=== PATIENT | male | born 1985 | race Caucasian/White ===

== ENCOUNTER 2023-03-26 09:33 | Emergency (ER) | payer OTHER, SELFPAY ==
[2023-03-26 09:37] VITALS: BP 148/97; PULSE 84; RESP 18; TEMP 37.2; O2SAT 99; BMI 25.8
--- NOTE | 2023-03-26 10:13 | CRLHL7_ITS ---
For Patients: As a result of the Century Cures Act, medical imaging exams and procedure reports are released immediately into your electronic medical record. You may view this report before your referring provider. If you have questions, please contact your health care provider. INDICATION: Fall TECHNIQUE: Noncontrast axial CT of the head. Coronal and sagittal reformats. Bone and soft tissue algorithms. COMPARISON: CT head report 06/14/2022, CT head 03/09/2017 FINDINGS: The ventricles and cortical sulci appear age-appropriate. No midline shift or mass effect. No acute intracranial hemorrhage or extra-axial fluid collection. Ribeiro-white matter differentiation is grossly maintained. White matter attenuation is within normal limits. Intracranial vessels are unremarkable for technique. Midline structures are unremarkable. Bony calvarium appears grossly intact. Marked circumferential mucosal thickening in the opacifying the right maxillary sinus. Minor scattered mucosal thickening elsewhere throughout the right paranasal sinuses. No air-fluid level or mastoid effusion. Unremarkable orbits. IMPRESSION: 1. No skull fracture or acute intracranial hemorrhage. 2. Marked right maxillary sinus mucosal thickening. Please note that all CT scans at this facility use dose modulation, iterative reconstruction, and/or weight-based dosing when appropriate to reduce radiation dose to as low as reasonably achievable. Dictated by Randa Marcelino MD @ 03/26/2023 10:30:31 AM (Electronically Signed)
--- NOTE | 2023-03-26 10:15 | ED_ITS ---
HPI - General Adult General Chief complaint: Dizziness/Vertigo Stated complaint: dizzy, numbness in hands Time Seen by Provider: 03/26/23 09:44 Source: patient and family Mode of arrival: ambulatory Limitations: no limitations History of Present Illness HPI narrative: Patient is a 37-year-old male presenting today with several concerns. He states that he has not felt well for the last 3 months. He states that on a daily basis he becomes acutely dizzy. The episode can last a few seconds to a couple of minutes. He states that all of a sudden the room were start to spin and he has to sit down and wait for to pass, or he just has to hold onto something so he does not fall over before passes. He does not become nauseated sweaty or confused when this occurs. He is also complaining of neck pain. States that his neck feels sore and tired all the time. Discomfort is bilaterally. He states that he also has tingling down both arms all the way to the fingertips bilaterally. No numbness. He states that after he gets his dizzy episodes he feels a little clumsy. He has not fallen or hit his head. He denies any unintentional weight changes, he exercises 4 times per week, he drinks 2 times per week. Denies tobacco use. 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 Feels like his anxieties generally well controlled. However, these episodes have gotten his anxiety up. No skin or hair changes. No pain in his back. No abdominal or chest pain. He is not short of breath. He denies a headache. He is also concerned because his eyes water when he eats. Related Data Home Medications Medication Instructions Recorded Confirmed escitalopram oxalate 20 mg tablet 20 mg PO DAILY 03/26/23 03/26/23 (Lexapro) Previous Rx's Medication Instructions Recorded alprazolam 0.5 mg tablet 0.5 mg PO BID PRN anxiety #10 tabs 01/14/22 cephalexin 250 mg capsule 250 mg PO TID #21 caps 03/12/22 escitalopram oxalate 20 mg tablet 20 mg PO QDAY #30 tabs 05/22/22 Allergies Allergy/AdvReac Type Severity Reaction Status Date / Time No Known Drug Allergies Allergy Verified 03/26/23 09:44 Review of Systems Status of ROS: Reports: 10 or more systems reviewed and unremarkable except as noted in History and below PFSH PFSH Social History Smoking Status: Never smoker Do you use any of these nicotine containing products: None How often do you have a drink containing alcohol: 2-3 times a week How often do you have six or more drinks on one occasion: Never AUDIT-C Alcohol total score: 3 Non-prescribed substance use: denies use Exam Narrative: Exam Narrative: Well-nourished well-developed patient in no acute distress. Alert and oriented. Answers questions appropriately. Mood and affect are appropriate. Thoughts are goal oriented and rational. No tangential or magical thinking noted. Patient speaks in full sentences without needing to catch his breath. HEENT: Normocephalic atraumatic. Pupils are equally round reactive to light. Extraocular muscles are intact. Conjunctivae are moist without any icterus noted. Moist mucous membranes. Posterior pharynx is normal. Neck is soft without any lymphadenopathy or thyromegaly. No masses are appreciated. Cardiovascular: Heart is regular rate and rhythm S1 and S2 are present without any murmurs. Lungs: Clear to auscultation bilaterally no wheezes rhonchi or rales are appreciated. Patient takes deep breaths without any discomfort. Abdomen: Soft and nontender nondistended with normal bowel sounds. No guarding or rebound. No masses or organomegaly appreciated. Extremities: Bilateral lower extremities are without edema. Normal DP and PT pulses. Skin: Well perfused without any obvious rashes. Strength is 5/5 of the upper and lower extremities. Reflexes are 2+ and symmetric at the knees. Romberg sign is negative. Cranial nerves 3-12 are normal. [id number]-fw-selu is normal. There is no nystagmus either horizontally or vertically. Gait is normal. Speech is not slurred or pressured. Const: Vital Signs, click to edit/add: Vital Signs - 24 hr 03/26/23 09:37 Temperature 99 F Pulse Rate [Right Pulse Oximeter] 84 Respiratory Rate 18 Blood Pressure [Ri ght Upper Arm] 148/97 H Pulse Oximetry 99 Oxygen Delivery Me thod Room Air Course Course ED Course: Had a lengthy discussion today with the patient and family about stress or anxi ety causing symptoms today. We discussed that the likelihood of us finding anything in the ER today would be extremely low given the duration and non specificity of his symptoms. Patient would like to have a head CT and lab work done. I do stress with the patient that head CT is not warranted at this time again, given the nonspecific city of his symptoms and the nonfocal presentation of his symptoms. At this time I do believe that the risk of radiation significantly outweighs the benefits and I do express this in no uncertain terms. Patient and both tell me that they will feel much better knowing that his brain looks normal, despite being exposed to radiation. Therefore head CT is ordered and is normal aside from maxillary mucosal thickening. Blood work is entirely normal. EKG, read by me, shows normal sinus rhythm. Vital Signs Vital signs: Initial Vital Signs Temperature 99 F 03/26/23 09:37 Temperature Source Temporal Artery Scan 03/26/23 09:37 Pulse Rate 84 03/26/23 09:37 Pulse Rhythm Regular 03/26/23 09:37 Respiratory Rate 18 03/26/23 09:37 Blood Pressure 148/97 H 03/26/23 09:37 Blood Pressure Mean 114 H 03/26/23 09:37 Blood Pressure Position Sitting 03/26/23 09:37 Pulse Oximetry 99 03/26/23 09:37 Oxygen Delivery Method Room Air 03/26/23 09:37 Vital Signs Temperature 99 F 03/26/23 09:37 Pulse Rate 84 03/26/23 09:37 Respiratory Rate 18 03/26/23 09:37 Blood Pressure 148/97 H 03/26/23 09:37 Pulse Oximetry 99 03/26/23 09:37 Oxygen Delivery Method Room Air 03/26/23 09:37 Temperature 99 F 03/26/23 09:37 Pulse Rate 84 03/26/23 09:37 Respiratory Rate 18 03/26/23 09:37 Blood Pressure 148/97 H 03/26/23 09:37 Pulse Oximetry 99 03/26/23 09:37 Oxygen Delivery Method Room Air 03/26/23 09:37 Medical Decision Making MDM Narrative Medical decision making narrative: 37-year-old male with nonspecific symptoms, dizziness and tingling. I recommend he follow-up with his primary care provider. Medical Records Medical records reviewed: Yes I reviewed the patient's medical records Lab Data Lab results reviewed: Yes I reviewed the patient's lab results Labs: Lab Results 03/26/23 Range/Units 10:34 WBC 4.72 (4.50-11.00) K/uL RBC 5.13 (4.30-5.90) m/uL Hgb 16.1 (13.5-17.5) gm/dL Hct 46.2 (37.0-53.0) % MCV 90 (80-100) fL MCH 31 (26-34) pg MCHC 35 (32-36) gm/dL RDW Coeff of Azael 12.1 (11.5-15.5) % Plt Count 261 (140-440) K/uL Neut % (Auto) 63.8 (42.0-72.0) % Lymph % (Auto) 24.2 (20-44) % Woodford % (Auto) 9.1 (0.0-11.0) % Eos % (Auto) 2.3 (0.0-7.0) % Baso % (Auto) 0.4 (0.0-3.0) % Neut # (Auto) 3.01 (1.7-7.0) K/uL Lymph # (Auto) 1.14 (0.90-2.90) K/uL Woodford # (Auto) 0.40 (0.00-0.90) K/UL Eos # (Auto) 0.11 (0.00-0.50) K/uL Baso # (Auto) 0.02 (0.00-0.30) K/uL Abs Immat Gran (auto) 0.01 (0.00-0.30) K/uL Imm/Tot Granulo (auto) 0.2 % Sodium 138 (135-149) mmol/L Potassium 4.5 (3.6-5.1) mmol/L Chloride 105 (96-114) mmol/L Carbon Dioxide 25 (20-32) mmol/L Anion Gap 8 (7-15) mEq/L BUN 10 (5-24) mg/dL Creatinine 0.7 (0.5-1.5) mg/dL Estimated Creat Clear 137.07 Estimated GFR 120 ml/min Glucose 108 (60-115) mg/dL Calcium 9.3 (8.4-10.6) mg/dL Total Bilirubin 0.9 (0.1-1.5) mg/dL Direct Bilirubin 0.2 (0.0-0.5) mg/dL AST 37 H (12-35) U/L ALT 38 (4-50) U/L Alkaline Phosphatase 62 (40-150) U/L Total Protein 7.6 (6.0-8.3) g/dL Albumin 5.0 (3.3-5.0) g/dL TSH 1.130 (0.270-4.20) uIU/mL Imaging Data CT scan - head: Attestation: I have reviewed the pertinent imaging results. Radiologist's impression: COMPARISON: CT head report 06/14/2022, CT head 03/09/2017 FINDINGS: The ventricles and cortical sulci appear age-appropriate. No midline shift or mass effect. No acute intracranial hemorrhage or extra-axial fluid collection. Ribeiro-white matter differentiation is grossly maintained. White matter attenuation is within normal limits. Intracranial vessels are unremarkable for technique. Midline structures are unremarkable. Bony calvarium appears grossly intact. Marked circumferential mucosal thickening in the opacifying the right maxillary sinus. Minor scattered mucosal thickening elsewhere throughout the right paranasal sinuses. No air-fluid level or mastoid effusion. Unremarkable orbits. IMPRESSION: 1. No skull fracture or acute intracranial hemorrhage. 2. Marked right maxillary sinus mucosal thickening. ECG Data Attestation: I personally reviewed and interpreted this ECG as follows: Discharge Plan Discharge Clinical Impression: Dizziness Patient Disposition: Home, Self-Care Condition: Stable Additional Instructions: Follow-up with your primary care provider as scheduled. Prescriptions: No Action escitalopram oxalate [Lexapro] 20 mg tablet 20 mg PO DAILY alprazolam 0.5 mg tablet 0.5 mg PO BID PRN (Reason: anxiety) Qty: 10 0RF cephalexin 250 mg capsule 250 mg PO TID Qty: 21 0RF escitalopram oxalate 20 mg tablet 20 mg PO QDAY Qty: 30 0RF Follow Up/Referrals: Rell Osman MD [Primary Care Provider] - Stand Alone Forms: [facility] [place] Info Instructions
[2023-03-26 10:43] LABS: Basophils Absolute Auto 0.02 K/uL (0.00-0.30); Basophils Percent Auto 0.4 % (0.0-3.0); Eosinophils Absolute Auto 0.11 K/uL (0.00-0.50); Eosinophils Percent Auto 2.3 % (0.0-7.0); Hematocrit 46.2 % (37.0-53.0); Hemoglobin* 16.1 gm/dL (13.5-17.5); Immature Granulocytes Abs Auto 0.01 K/uL (0.00-0.30); Immature Granulocytes Pct Auto 0.2 %; Lymphocytes Absolute Auto 1.14 K/uL (0.90-2.90); Lymphocytes Percent Auto 24.2 % (20-44); Mean Corpuscular HGB Conc 35 gm/dL (32-36); Mean Corpuscular Hemoglobin 31 pg (26-34); Mean Corpuscular Volume 90 fL (80-100); Monocytes Percent Auto 9.1 % (0.0-11.0); Neutrophils Absolute Auto 3.01 K/uL (1.7-7.0); Neutrophils Percent Auto 63.8 % (42.0-72.0); Platelet Count* 261 K/uL (140-440); RDW Coefficient of Variation % 12.1 % (11.5-15.5); Red Blood Count 5.13 m/uL (4.30-5.90); White Blood Count* 4.72 K/uL (4.50-11.00)
[2023-03-26 10:44] LABS: Slide Review Reflex No
[2023-03-26 10:57] LABS: Chloride* 105 mmol/L (96-114); Sodium* 138 mmol/L (135-149)
[2023-03-26 10:58] LABS: Potassium* 4.5 mmol/L (3.6-5.1)
[2023-03-26 11:00] LABS: Creatinine* 0.7 mg/dL (0.5-1.5); Est. Creatinine Clearance* 137.07; Estimated Glomerular Filt Rate 120 ml/min
[2023-03-26 11:01] LABS: Anion Gap 8 mEq/L (7-15); Bilirubin Direct* 0.2 mg/dL (0.0-0.5); Bilirubin Total* 0.9 mg/dL (0.1-1.5); Blood Urea Nitrogen* 10 mg/dL (5-24); Calcium* 9.3 mg/dL (8.4-10.6); Carbon Dioxide* 25 mmol/L (20-32); Glucose* 108 mg/dL (60-115); Total Protein* 7.6 g/dL (6.0-8.3)
[2023-03-26 11:02] LABS: Alanine Aminotransferase* 38 U/L (4-50); Alkaline Phosphatase* 62 U/L (40-150); Aspartate Amino Transferase* 37 U/L (12-35)
== END 2023-03-26 11:50 | disposition home or self-care (01) ==
PROVIDERS: Emergency Provider Family Medicine; PCP Family Medicine
DX: R42 Dizziness and giddiness (principal)
CPT/HCPCS: 36415; 70450; 80048; 80076; 84443; 85025; 93005; 99284; 99285

== ENCOUNTER 2024-03-08 20:44 | Outpatient (CLI) | payer OTHER, SELFPAY | END 2024-03-08 20:45 | disposition home or self-care (01) | LOC: AMB 03-20 00:38 | PROVIDERS: PCP Family Medicine; Visit Provider Family Medicine | DX: S09.90XA Unspecified injury of head, initial encounter (principal); W10.9XXA Fall (on) (from) unspecified stairs and steps, initial encounter; Y92.009 Unspecified place in unspecified non-institutional (private) residence as the place of occurrence of the external cause | CPT/HCPCS: A0425; A0427 ==

== ENCOUNTER 2024-03-08 21:33 | Emergency (ER) | payer OTHER, SELFPAY ==
--- OUTSIDE RECORDS SUMMARY | 2024-03-08 21:35 | XMS_ITS | Clinical Summary ---
Author Organization [facility] Address [address] , [address] [place] [address] Phone Care Team Providers Care Security And Compliance Analyst Name Role Phone Print, Print Unavailable Conditions or Problems Problem Name Problem Code Onset Date Status Entry Date Provider Comment Standard Description Annotate Tremor, essential 692384935 (SNOMED CT) 04/01 Active 04/01 John Ji MD Essential tremor Vestibular disorder [id number] (SNOMED CT) 04/01 Active 04/01 John Ji MD Labyrinthine disorder Cervical radiculopathy [id number] (SNOMED CT) 04/01 Active 04/01 John Ji MD Cervical radiculopathy Medications No information available. Medications Administered No information available. Allergies, Adverse Reactions, Alerts No information available. Results Date Name Value Unit Range Flag Description Internal Other: Authorizatio n - OBS [email or web address] Yes Authoriza tion: Release of Information - Authorize [facility] - Payment and Healthcare Operations ROIAUTHOTHER Yes Authoriz ation: Release of Information - Authorize Others/Insurance - Payment and Healthcare Operations HIECONSENT Yes Consent To Release information to the Health Information Exchange (HIE) [email or web address] Yes Authorizat ion: Authorization for [facility] to leave messages, voicemail, send text messages, send emails AUTHRELHCARE Yes Authoriz ation: Release/Retrieval of Information to/from Healthcare Facilities, Pharmacy Benefit Payers and Providers AUTHPRIVPRAC Yes Authoriz ation: Notice of privacy practices AUTHBENEFIT Yes Authoriza tion: Assignment of Benefits and Payment Agreement Plan of Care Type Date Detail Pending order Follow up Pending order Follow up Pending order EMG bilateral up per ext Pending order EMG bilateral up per ext Pending order MRI-Brain W/O Pending order MRI-Cervical W/O Pending order Kristin vaughan Procedures Code Procedure Name Date Entry Date [id number] MRI-Brain W/O [id number] MRI-Cervical W/O ORDERS Courmelonie Mays Therapy 04/01 [id number]-55651 MRI Cervical W/O [id number] MRI Brain W/O Vital Signs No information available. Immunizations No information available. Advance Directives No information available.
--- OUTSIDE RECORDS SUMMARY | 2024-03-08 21:35 | XMS_ITS | Data Portability ---
Author Organization [place] [facility], Main Office Address [address] [place] [address] Assessment Encounter Date Assessment Date Assessment LastModified by Organization Details LastModified Time 09/24/2020 09/24/2020 1. Biopsy-proven basal carcinoma right mid cheek here for Mohs surgery. Verbally and with the digital board we reviewed the risks and benefits of surgery including pain discomfort downtime chance of infection we diagrammed the potential length of the scar. The benefits of Mohs surgery and minimizing scarring indicates like this versus standard surgery. Written and verbal informed consent obtained [facility] case number [id number]. Cleansed with alcohol followed by Betadine anesthetized 1% lidocaine with epinephrine. Stage I: Curette debulking. Half a millimeter margins taken down to the mid dermis revealing basaloid islands near the 11:00 pole. Nodular type. Stage II: No debulking. 1 mm margins taken from 8:00 to 3:00 through 11:00 revealing no residual basal carcinoma. Total stages 2, total sections 2. Final defect 1.0 x 0.3 cm. Redundancies removed superior medial and inferior lateral. Undermined all directions 1 cm. Hemostasis obtained electrocautery closed with 4-0 Vicryl and 5-0 nylon to be removed in 8 days in [place]. Pressure dressing applied. Verbal handwritten and typewritten wound care instructions given along with cell phone number. Intermediate closure 1.1 cm in length on face [id number] Not available 09/24/2020 22:58:11 Plan of Treatment Reminders Order Date Submit Date Provider Last Modified By Organization Details Last Modified Time Details Appointments None record ed. Lab None record ed. Referral None record ed. Procedures None record ed. Surgeries None record ed. Imaging None record ed. Medication Orders None record ed. Patient TargetsNo targets recorded. Patient InstructionsNo instructions recorded. Reason for Referral None Reported. Medical Equipment None Reported. Medications Name Sig Start Date Stop Date Status Note LastModified by Organization Details LastModified Time azithromycin 250 mg tablet TAKE 1 TABLET (250MG) BY MOUTH DAILY active Not Available Not Available No t Available meloxicam 15 mg tablet TAKE 1 TABLET BY MOUTH EVERY DAY active Not Available Not Available No t Available prednisone 20 mg tablet TAKE 1 TABLET BY MOUTH TWICE A DAY active Not Available Not Available No t Available albuterol sulfate HFA 90 mcg/actuation aerosol inhaler INHALE 2 PUFFS BY MOUTH EVERY 4 HOURS NEEDED active Not Available Not Available No t Available ondansetron 4 mg disintegrating tablet DISSOLVE 1 TABLET (4MG) BY MOUTH EVERY 6 HOURS NEEDED FOR NAUSEA/VO MITING active Not Available Not Available No t Available escitalopram 20 mg tablet TAKE 1 TABLET BY MOUTH EVERY DAY active Not Available Not Available No t Available Vitals None Recorded Social History None recorded. Functional Status None recorded. Mental Status None recorded. Family History Nothing Reported. Medical History No medical history recorded. Past Encounters Encounter ID Performer Location Encounter Start Date Encounter Closed Date Diagnosis/Indication Diagnosis SNOMED-CT Code Diagnosis ICD10 Code Diagnosis Note [id number] Leah Cotnreras MD Main Office [address] [place] [address],[facility] [place] [address] 09/24/2020 10:23:54 10/01/2020 19:53:23 Basal cell carcinoma of forehead [id number] C44.319 Health Concerns Section Related Observation LastModified by Organization Detai ls LastModified Time None Recorded Concern Status LastModified by Organization Details LastModified Time None Recorded Advance Directives Directive None Recorded Payers Encounter Date Sequence Insurance Name Policy Number Policy Nur Covered Member ID Nur Member ID Guarantor Name 09/24/2020 1 [employer] - DOS PRIOR TO 2021 [id number] Cezar Gallardo [id number] Cezar Gallardo Notes Date Note Type Note Provider Name and Address Organization Details Recorded Time 09/24/2020 text/html Presents today for a biopsy-proven basal carcinoma on the right cheek. He is alone today. Seen in [place] previously. Prior history and social history and family history unchanged in the interim and reviewed from notes from [place]. Leah Contreras MD [address],[facility] [place], [address], [facility] 10/01/2020 19:53:13
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
--- OUTSIDE RECORDS SUMMARY | 2024-03-08 21:35 | XMS_ITS | Encounter Summary ---
Author Organization [place] Address [address] [place] [address] Care Team Providers Care Coiled Coil Inspector Name Role Phone Yaniv Rhodes PA-C Primary Care Provider [phone] Physicians, [facility] Unavailable [phone] Samia Juárez MD Unavailable [phone] Encounter Details Date Type Department Care Team (Late st Contact Info) Description 07/31/2023 MyC Medical Advice [facility] [address] [phone] Radha Hogan CMA Social History Tobacco Use Types Packs/Day Years Used Date Smoking Tobacco: Former Passive Smoke Exposure: Past Smokeless Tobacco: Former Alcohol Use Standard Drinks/Week Comments Yes 0 (1 standard drink = 0.6 oz pur e alcohol) socially PHQ-2 Answer Date Recorded PHQ-2 Score 1 08/04/2023 Adolescent Education Answer Date Record ed Getting School Help Needed Not on file 11/21 Sex and Gender Information Value Date Recorded Sex Assigned at Not on file Legal Sex Male 4:13 AM MACHINE HOOP MAKER Gender Identity Not on file Sexual Orientation Not on file documented as of this encounter Plan of Treatment Not on file documented as of this encounter Visit Diagnoses Not on filedocumented in this encounter Additional Health Concerns Assessment Noted Time PHQ-9 Depression Total Score: 7 03/27/19 24 2:58 PM MACHINE HOOP MAKER documented as of this encounter Care Teams Coiled Coil Inspector Relationship Specialty Start Date End Date Yaniv Rhodes PA-C [address] [address] PCP - General Family Medicine 06/26/21 Physicians, [address] [place] [address] Assigned PCP 03/12/23 09/07/23 Samia Juárez MD [address] [place] [address] Assigned PCP 09/08/23 documented as of this encounter
--- OUTSIDE RECORDS SUMMARY | 2024-03-08 21:35 | XMS_ITS | Clinical Summary ---
Author Organization [facility] Address [place], [place] [address] Care Team Providers Care Applications Development Consultant Name Role Phone Pcp, No Primary Care Provider Unavailabl e Allergies No known active allergies Social History Tobacco Use Types Packs/Day Years Used Date Smoking Tobacco: Never Assessed Sex and Gender Information Value Date Recorded Sex Assigned at Not on file Legal Sex Male 2:23 PM SIGNAL ENGINEER Gender Identity Not on file Sexual Orientation Not on file Last Filed Vital Signs Vital Sign Reading Time Taken Comments Blood Pressure 117/66 06/14/2022 4:40 AM CDT Pulse 81 06/14/2022 4:59 AM CDT Temperature 36.6 C (97.9 F) 06/14/2022 2:40 AM CDT Respiratory Rate 18 06/14/2022 4:40 AM CDT Oxygen Saturation 99% 06/14/2022 4:59 AM CDT Inhaled Oxygen Concentration - - Weight 74.8 kg (165 lb) 06/14/2022 2:40 AM CDT Height - - Body Mass Index - - Plan of Treatment Upcoming Encounters Date Type Department Care Team (Late st Contact Info) Description 03/28/2024 9:30 AM SIGNAL ENGINEER Office Visit [facility] [address] [address] [place] [address] [place], [place] [phone] Insurance [employer] Care Teams Applications Development Consultant Relationship Specialty Start Date End Date Pcp, No . PCP - General 02/01/16
--- OUTSIDE RECORDS SUMMARY | 2024-03-08 21:35 | XMS_ITS | Encounter Summary ---
Author Organization [facility] Address [address] [place] [address] Care Team Providers Care Environmental Services Assistant Name Role Phone Yaniv Rhodes PA-C Primary Care Provider [phone] Samia Juárez MD Unavailable [phone] Reason for Visit * Reason Comments Medication Refill Encounter Details Date Type Department Care Team ([facility] st Contact Info) Description 01/27/2024 Refill [facility] [address] [place] [phone] Samia Juárez MD [address] [place] [id number] Medication Refill Social History Tobacco Use Types Packs/Day Years [...] on file Legal Sex Male 4:13 AM DISTRICT FIRE MANAGEMENT OFFICER Gender Identity Not on file Sexual Orientation Not on file documented as of this encounter Miscellaneous Notes * Telephone Encounter - Susan Chester CMA - 02/16/2024 2:06 PM CST Pt scheduled appt for 02/21, can you send extension for KEP? Cezar Gallardo is requesting a refill of: Pending Prescriptions: Disp Refills escitalopram (LEXAPRO) 20 MG tablet 7 tabl*0 Sig: Take 1 tablet (20 mg) by mouth daily. Refused Prescriptions: Disp Refills escitalopram (LEXAPRO) 20 MG tablet [Pharm* Sig: TAKE 1 TABLET DAILY Refused By: DAYSI ARREOLA I Reason for Refusal: Patient needs appointment RICT FIRE MANAGEMENT OFFICER * Telephone Encounter - Daysi Arreola MA - 01/27/2024 7:46 AM CST Refused Prescriptions: Disp Refills escitalopram (LEXAPRO) 20 MG tablet [Pharm* Sig: TAKE 1 TABLET DAILY Refused By: DAYSI ARREOLA I Reason for Refusal: Patient needs appointment Mail order: Pt is due for a six month med check, ov Per notes on 08-04-23 follow up for a fasting px Daysi [phone] (home) RICT FIRE MANAGEMENT OFFICER * Addendum Note - Susan Chester CMA - 01/27/2024 12:36 AM CSTAddended by: SUSAN CHESTER on: 02/16/2024 02:06 PM Modules accepted: Orders RICT FIRE MANAGEMENT OFFICER * Addendum Note - Shelley Duncan PA-C - 01/27/2024 12:36 AM DISTRICT FIRE MANAGEMENT OFFICER Addended by: SHELLEY DUNCAN on: 02/16/2024 02:16 PM Modules accepted: Orders RICT FIRE MANAGEMENT OFFICER documented in this encounter Plan of Treatment Not on file documented as of this encounter Visit Diagnoses Diagnosis ADRIANE (generalized anxiety disorder) Generalized anxiety disorder documented in this encounter Additional Health Concerns Assessment Noted Time PHQ-9 Depression Total Score: 4 08/04/19 24 11:22 AM CDT documented as of this encounter Care Teams Environmental Services Assistant Relationship Specialty Start Date End Date Yaniv Rhodes PA-C [address] [place] [address] PCP - General Family Medicine 06/26/21 Samia Juárez MD [address] [place] [address] Assigned PCP 09/08/23 documented as of this encounter
--- OUTSIDE RECORDS SUMMARY | 2024-03-08 21:35 | XMS_ITS | Encounter Summary ---
Author Organization [facility] Address [address] [place] [address] Care Team Providers Care Pattern Cutter Name Role Phone Yaniv Rhodes PA-C Primary Care Provider [phone] Samia Juárez MD Unavailable [phone] Reason for Visit * Reason Comments Recheck Medication Non-fasting today, r efill medications Encounter Details Date Type Department Care Team (Late st Contact Info) Description 02/22/2024 1:30 PM CHARGING CAR OPERATOR Office Visit [facility] [address] [place] [address] [place] [phone] Samia Juárez MD [address] [place] [address] ADRIANE (generalized anxiety disorder) Social History Tobacco Use Types Packs/Day Years [...] on file Legal Sex Male 4:13 AM CHARGING CAR OPERATOR Gender Identity Not on file Sexual Orientation Not on file documented as of this encounter Last Filed Vital Signs Vital Sign Reading Time Taken Comments Blood Pressure 134/84 02/22/2024 1:23 PM CHARGING CAR OPERATOR Pulse 97 02/22/2024 1:23 PM CHARGING CAR OPERATOR Temperature 36.7 C (98.1 F) 02/22/2024 1:23 PM CHARGING CAR OPERATOR Respiratory Rate - - Oxygen Saturation 98% 02/22/2024 1:23 PM CHARGING CAR OPERATOR Inhaled Oxygen Concentration - - Weight 76.7 kg (169 lb) 02/22/2024 1:23 PM CHARGING CAR OPERATOR Height - - Body Mass Index 25.7 08/02/2021 10:08 AM CDT documented in this encounter Progress Notes * Samia Juárez MD - 02/22/2024 1:30 PM CST Assessment & Plan Problem List Items Addressed This Visit None Visit Diagnoses ADRIANE (generalized anxiety disorder) Relevant Medications escitalopram (LEXAPRO) 20 MG tablet 1. ADRIANE (generalized anxiety disorder) His anxiety is controlled, for now he wants to continue with the same dose. I discussed with him possibility of going down on the dose to 10 mg/day, if he wants to try to stop it and having side effects, consider a couple weeks of prozac. He will call or message me if he decides to try this. - escitalopram (LEXAPRO) 20 MG tablet; Take 1 tablet (20 mg) by mouth daily. Dispense: 90 tablet; Refill: 1 FUTURE APPOINTMENTS: - Follow-up visit in 6months. We manage his chronic medical care. No follow-ups on file. Samia Juárez MD [facility] Subjective Nursing Notes: Rebecca Chester, [facility] 02/22/2024 1:26 PM Signed Chief Complaint Patient presents with Recheck Medication Non-fasting today, refill medications Pre-visit Screening: Immunizations: up to date Colonoscopy: NA Mammogram: NA Asthma Action Test/Plan: NA PHQ9: Done today GAD7: Done today Questioned patient about current smoking habits Pt. has never smoked. Ok to leave detailed message on voice mail for today's visit only yes, phone # [phone] Cezar Gallardo is a 38 year old male who presents to clinic today for the following health issues HPI Here for a refill on his medication for anxiety, lexapro. He said he thinks he more has social anxiety. Has tried to stop it but this gave him more anxiety. Not sure if he should continue taking it. Review of Systems Constitutional, HEENT, cardiovascular, pulmonary, gi and gu systems are negative, except as otherwise noted. Objective BP 134/84 (BP Location: Right arm, Patient Position: Sitting, Cuff Size: Adult Large) Pulse 97 Temp 98.1 ??F (36.7 ??C) (Temporal) Wt 76.7 kg (169 lb) SpO2 98% BMI 25.70 kg/m?? Body mass index is 25.7 kg/m??. Physical Exam GENERAL: alert and no distress MS: no gross musculoskeletal defects noted, no edema PSYCH: mentation appears normal, affect normal/bright GING CAR OPERATOR documented in this encounter Nursing Notes * Rebecca Chester CMA - 02/22/2024 1:30 PM CST Chief Complaint Patient presents with Recheck Medication Non-fasting today, refill medications Pre-visit Screening: Immunizations: up to date Colonoscopy: NA Mammogram: NA Asthma Action Test/Plan: NA PHQ9: Done today GAD7: Done today Questioned patient about current smoking habits Pt. has never smoked. Ok to leave detailed message on voice mail for today's visit only yes, phone # [phone] GING CAR OPERATOR documented in this encounter Plan of Treatment Not on file documented as of this encounter Visit Diagnoses Diagnosis ADRIANE (generalized anxiety disorder) Generalized anxiety disorder documented in this encounter Additional Health Concerns Assessment Noted Time PHQ-9 Depression Total Score: 2 02/21/19 25 1:54 PM CHARGING CAR OPERATOR documented as of this encounter Care Teams Pattern Cutter Relationship Specialty Start Date End Date Yaniv Rhodes PA-C [address] [place] [address] PCP - General Family Medicine 06/26/21 Samia Juárez MD [address] [place] [address] [place] [address] Assigned PCP 09/08/23 documented as of this encounter
--- OUTSIDE RECORDS SUMMARY | 2024-03-08 21:35 | XMS_ITS | Encounter Summary ---
Author Organization [facility] Address [address] [place] [address] Care Team Providers Care Blast Furnace Keeper Name Role Phone Yaniv Rhodes PA-C Primary Care Provider [phone] Physicians, [facility] Unavailable [phone] Samia Juárez MD Unavailable [phone] Reason for Visit * Reason Onset Date Comments Refill Request 08/01/2023 Encounter Details Date Type Department Care Team (Late st Contact Info) Description 08/01/2023 MyC Refill [facility] [address] [phone] Yaniv Rhodes PA-C [address] [place], [place] [address] Refill Request Social History Tobacco Use Types Packs/Day Years [...] on file Legal Sex Male 4:13 AM BUSINESS DEVELOPMENT DIRECTOR Gender Identity Not on file Sexual Orientation Not on file documented as of this encounter Plan of Treatment Not on file documented as of this encounter Visit Diagnoses Diagnosis ADRIANE (generalized anxiety disorder) Generalized anxiety disorder documented in this encounter Additional Health Concerns Assessment Noted Time PHQ-9 Depression Total Score: 7 03/27/19 2:58 PM BUSINESS DEVELOPMENT DIRECTOR documented as of this encounter Care Teams Blast Furnace Keeper Relationship Specialty Start Date End Date Yaniv Rhodes PA-C [address] [place] [address] PCP - General Family Medicine 06/26/21 Physicians, [address] [place] [phone] Assigned PCP 03/12/23 09/07/23 Samia Juárez MD [address] [place] [address] Assigned PCP 09/08/23 documented as of this encounter
--- OUTSIDE RECORDS SUMMARY | 2024-03-08 21:35 | XMS_ITS | Encounter Summary ---
Author Organization [facility] Address [address] [place] [address] Care Team Providers Care Field Reimbursement Manager Name Role Phone Yaniv Rhodes PA-C Primary Care Provider [phone] Physicians, [facility] Unavailable [phone] Samia Juárez MD Unavailable [phone] Encounter Details Date Type Department Care Team (Late st Contact Info) Description 03/28/2023 MyC Medical Advice [facility]icians [address] [place] [address] Yaniv Rhodes PA-C [address] [place] [address] Social History Tobacco Use Types Packs/Day Years Used Date Smoking Tobacco: Former Passive Smoke Exposure: Past Smokeless Tobacco: Former Alcohol Use Standard Drinks/Week Comments Yes 0 (1 standard drink = 0.6 oz pur e alcohol) socially PHQ-2 Answer Date Recorded PHQ-2 Score 0 03/27/2023 Adolescent Education Answer Date Record ed Getting School Help Needed Not on file 11/21 Sex and Gender Information Value Date Recorded Sex Assigned at Not on file Legal Sex Male 4:13 AM COTTON GROWER Gender Identity Not on file Sexual Orientation Not on file documented as of this encounter Plan of Treatment Not on file documented as of this encounter Visit Diagnoses Not on filedocumented in this encounter Additional Health Concerns Assessment Noted Time PHQ-9 Depression Total Score: 7 03/27/19 24 2:58 PM COTTON GROWER documented as of this encounter Care Teams Field Reimbursement Manager Relationship Specialty Start Date End Date Yaniv Rhodes PA-C [address] [place] [address] PCP - General Family Medicine 06/26/21 Physicians, [address] [facility] [address] [place] [address] Assigned PCP 03/12/23 09/07/23 Samia Juárez MD [address] [place] [address] Assigned PCP 09/08/23 documented as of this encounter
--- OUTSIDE RECORDS SUMMARY | 2024-03-08 21:35 | XMS_ITS | Encounter Summary ---
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 Gender Identity Not on file Sexual Orientation Not on file documented as of this encounter Plan of Treatment Not on file documented as of this encounter Visit Diagnoses Not on filedocumented in this encounter Additional Health Concerns Assessment Noted Time PHQ-9 Depression Total Score: 2 02/21/19 25 1:54 PM MOTORCYCLE TESTER documented as of this encounter Care Teams Piece Hand Relationship Specialty Start Date End Date Yaniv Rhodes PA-C [address] [place] [facility] [address] [place] [address] PCP - General Family Medicine 06/26/21 Samia Juárez MD [address] [place] [address] Assigned PCP 09/08/23 documented as of this encounter
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
--- OUTSIDE RECORDS SUMMARY | 2024-03-08 21:35 | XMS_ITS | Encounter Summary ---
Author Organization [facility] Address [address] [place] [address] Care Team Providers Care Credit Advisor Name Role Phone Yaniv Rhodes PA-C Primary Care Provider [phone] Physicians, [facility] Unavailable [phone] Samia Juárez MD Unavailable [phone] Encounter Details Date Type Department Care Team (Late st Contact Info) Description 08/04/2023 MyC Medical Advice [facility] Physicians [address] [phone] Rebecca Chester CMA Social History Tobacco Use Types Packs/Day [...] on file Legal Sex Male 4:13 AM EXCEPTIONAL STUDENT EDUCATION AIDE Gender Identity Not on file Sexual Orientation Not on file documented as of this encounter Plan of Treatment Not on file documented as of this encounter Visit Diagnoses Not on filedocumented in this encounter Additional Health Concerns Assessment Noted Time PHQ-9 Depression Total Score: 4 08/04/19 24 11:22 AM CDT documented as of this encounter Care Teams Credit Advisor Relationship Specialty Start Date End Date Yaniv Rhodes PA-C [address] [address] PCP - General Family Medicine 06/26/21 Physicians, [address] [place] [address] Assigned PCP 03/12/23 09/07/23 Samia Juárez MD [address] [place] [address] Assigned PCP 09/08/23 documented as of this encounter
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
[2024-03-08 22:04] VITALS: BP 113/70; PULSE 93; RESP 18; O2SAT 96
[2024-03-08 22:12] VITALS: BP 123/67; PULSE 90; RESP 18; O2SAT 96
[2024-03-08 22:25] VITALS: BP 122/75; PULSE 82; RESP 18; O2SAT 95
[2024-03-08 22:32] VITALS: BP 115/69; PULSE 91; RESP 18; O2SAT 94
--- NOTE | 2024-03-08 22:40 | ED.NURSE ---
Cleaned forehead wound and nose abrasion with wound cleanser. Applied bacitracin to both areas and applied large bandage to forehead to help prevent patient from touching wound.
[2024-03-08 22:42] VITALS: BP 109/79; PULSE 94; O2SAT 96
--- OUTSIDE RECORDS SUMMARY | 2024-03-08 22:46 | XMS_ITS | Encounter Summary ---
Author Organization [place] Address [address] [place] [address] Care Team Providers Care Glue Bone Drier Name Role Phone Yaniv Rhodes PA-C Primary Care Provider [phone] Samia Juárez MD Unavailable [phone] Reason for Visit * Reason Comments Medication Refill Encounter Details Date Type Department Care Team ([facility] st Contact Info) Description 01/27/2024 Refill [facility] [address] [place] [address] Samia Juárez MD [address] [place] [address] [id number] Medication Refill Social History Tobacco Use Types [...] on file Legal Sex Male 4:13 AM RN LPN CNA Gender Identity Not on file Sexual Orientation [...] I Reason for Refusal: Patient needs appointment LPN CNA * Telephone Encounter - Daysi Arreola MA - 01/27/2024 7:46 AM CST Refused Prescriptions: Disp Refills escitalopram (LEXAPRO) 20 MG tablet [Pharm* Sig: TAKE 1 TABLET DAILY Refused By: DAYSI ARREOLA I Reason for Refusal: Patient needs appointment Mail order: Pt is due for a six month med check, ov Per notes on 08-04-23 follow up for a fasting px Daysi [phone] (home) LPN CNA * Addendum Note - Susan Chester CMA - 01/27/2024 12:36 AM CSTAddended by: SUSAN CHESTER on: 02/16/2024 02:06 PM Modules accepted: Orders LPN CNA * Addendum Note - Shelley Duncan PA-C - 01/27/2024 12:36 AM RN LPN CNA Addended by: SHELLEY DUNCAN on: 02/16/2024 02:16 PM Modules accepted: Orders LPN CNA documented in this encounter Plan of Treatment Not on file documented as of this encounter Visit Diagnoses Diagnosis ADRIANE (generalized anxiety disorder) Generalized anxiety disorder documented in this encounter Additional Health Concerns Assessment Noted Time PHQ-9 Depression Total Score: 4 08/04/19 24 11:22 AM CDT documented as of this encounter Care Teams Glue Bone Drier Relationship Specialty Start Date End Date Yaniv Rhodes PA-C [address] [place] [address] PCP - General Family Medicine 06/26/21 Samia Juárez MD [address] [place] [address] Assigned PCP 09/08/23 documented as of this encounter
--- OUTSIDE RECORDS SUMMARY | 2024-03-08 22:46 | XMS_ITS | Encounter Summary ---
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 Gender Identity Not on file Sexual Orientation Not on file documented as of this encounter Plan of Treatment Not on file documented as of this encounter Visit Diagnoses Not on filedocumented in this encounter Additional Health Concerns Assessment Noted Time PHQ-9 Depression Total Score: 4 08/04/19 24 11:22 AM CDT documented as of this encounter Care Teams Bellman Captain Relationship Specialty Start Date End Date Yaniv Rhodes PA-C [address] [address] PCP - General Family Medicine 06/26/21 Physicians, [address] [place] [address] Assigned PCP 03/12/23 09/07/23 Samia Juárez MD [address] [place] [address] Assigned PCP 09/08/23 documented as of this encounter
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
--- OUTSIDE RECORDS SUMMARY | 2024-03-08 22:46 | XMS_ITS | Encounter Summary ---
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 Gender Identity Not on file Sexual Orientation Not on file documented as of this encounter Plan of Treatment Not on file documented as of this encounter Visit Diagnoses Not on filedocumented in this encounter Additional Health Concerns Assessment Noted Time PHQ-9 Depression Total Score: 7 03/27/19 24 2:58 PM PRODUCT TEST SPECIALIST documented as of this encounter Care Teams Protohistorian Relationship Specialty Start Date End Date Yaniv Rhodes PA-C [address] [address] PCP - General Family Medicine 06/26/21 Physicians, [address] [place] [address] Assigned PCP 03/12/23 09/07/23 Samia Juárez MD [address] [place] [address] Assigned PCP 09/08/23 documented as of this encounter
--- OUTSIDE RECORDS SUMMARY | 2024-03-08 22:46 | XMS_ITS | Clinical Summary ---
Author Organization [facility] [place], [place] [address] Care Team Providers Care Byproducts Maker Name Role Phone Pcp, No Primary Care Provider Unavailabl e Allergies No known active allergies Social History Tobacco Use Types Packs/Day Years Used Date Smoking Tobacco: Never Assessed Sex and Gender Information Value Date Recorded Sex Assigned at Not on file Legal Sex Male 2:23 PM BACK PAD INSPECTOR Gender Identity Not on file Sexual [...] st Contact Info) Description 03/28/2024 9:30 AM BACK PAD INSPECTOR Office Visit [facility] [address] [address] [place] [address] [place], [place] [phone] Insurance [employer] Care Teams Byproducts Maker Relationship Specialty Start Date End Date Pcp, No . PCP - General 02/01/16
--- OUTSIDE RECORDS SUMMARY | 2024-03-08 22:46 | XMS_ITS | Encounter Summary ---
Author Organization [place] Address [address] [place] [address] Care Team Providers Care Decontamination Worker Name Role Phone Yaniv Rhodes PA-C Primary Care Provider [phone] Physicians, [facility] Unavailable [phone] Samia Juárez MD Unavailable [phone] Reason for Visit * Reason Onset Date Comments Refill Request 08/01/2023 Encounter Details Date Type Department Care Team (Late st Contact Info) Description 08/01/2023 MyC Refill [facility] [address] [phone] Yaniv Rhodes PA-C [address] [place], [place] [phone] Refill Request Social History Tobacco Use Types [...] on file 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 Gender Identity Not on file Sexual Orientation Not on file documented as of this encounter Plan of Treatment Not on file documented as of this encounter Visit Diagnoses Diagnosis ADRIANE (generalized anxiety disorder) Generalized anxiety disorder documented in this encounter Additional Health Concerns Assessment Noted Time PHQ-9 Depression Total Score: 7 03/27/19 2:58 PM FINISHER [employer] documented as of this encounter Care Teams Decontamination Worker Relationship Specialty Start Date End Date Yaniv Rhodes PA-C [address] [place] [address] PCP - General Family Medicine 06/26/21 Physicians, [address] [place] [phone] Assigned PCP 03/12/23 09/07/23 Samia Juárez MD [address] [place] [address] Assigned PCP 09/08/23 documented as of this encounter
--- OUTSIDE RECORDS SUMMARY | 2024-03-08 22:46 | XMS_ITS | Encounter Summary ---
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 Gender Identity Not on file Sexual Orientation Not on file documented as of this encounter Plan of Treatment Not on file documented as of this encounter Visit Diagnoses Not on filedocumented in this encounter Additional Health Concerns Assessment Noted Time PHQ-9 Depression Total Score: 2 02/21/19 25 1:54 PM DATA BASE DESIGN ANALYST documented as of this encounter Care Teams Allied Health Teacher Relationship Specialty Start Date End Date Yaniv Rhodes PA-C [address] [facility] [address] [place] [address] PCP - General Family Medicine 06/26/21 Samia Juárez MD [address] [place] [address] Assigned PCP 09/08/23 documented as of this encounter
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
--- OUTSIDE RECORDS SUMMARY | 2024-03-08 22:46 | XMS_ITS | Encounter Summary ---
Author Organization [place] Address [address] [place] [address] Care Team Providers Care Campaign Analyst Name Role Phone Yaniv Rhodes PA-C Primary Care Provider [phone] Physicians, [facility] Unavailable [phone] Samia Juárez MD Unavailable [phone] Encounter Details Date Type Department Care Team (Late st Contact Info) Description 03/28/2023 MyC Medical Advice [facility] [address] [place] [address] Yaniv Rhodes PA-C [address] [place] [address] Social History Tobacco Use Types [...] on file 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 Gender Identity Not on file Sexual Orientation Not on file documented as of this encounter Plan of Treatment Not on file documented as of this encounter Visit Diagnoses Not on filedocumented in this encounter Additional Health Concerns Assessment Noted Time PHQ-9 Depression Total Score: 7 03/27/19 24 2:58 PM WELL LOGGING OPERATOR MUD ANALYSIS documented as of this encounter Care Teams Campaign Analyst Relationship Specialty Start Date End Date Yaniv Rhodes PA-C [address] [place] [address] PCP - General Family Medicine 06/26/21 Physicians, [address] [facility] [address] [place] [address] Assigned PCP 03/12/23 09/07/23 Samia Juárez MD [address] [place] [address] Assigned PCP 09/08/23 documented as of this encounter
--- OUTSIDE RECORDS SUMMARY | 2024-03-08 22:46 | XMS_ITS | Encounter Summary ---
Author Organization [place] Address [address] [place] [address] Care Team Providers Care Roof Bolter Name Role Phone Yaniv Rhodes PA-C Primary Care Provider [phone] Samia Juárez MD Unavailable [phone] Reason for Visit * Reason Comments Recheck Medication Non-fasting today, r efill medications Encounter Details Date Type Department Care Team (Late st Contact Info) Description 02/22/2024 1:30 PM DRUM OPERATOR Office Visit [facility] [address] [place] [address] [place] [phone] Samia Juárez MD [address] [place] [address] ADRIANE (generalized anxiety disorder) Social History [...] on file Legal Sex Male 4:13 AM DRUM OPERATOR Gender Identity Not on file Sexual Orientation Not on file documented as of this encounter Last Filed Vital Signs Vital Sign Reading Time Taken Comments Blood Pressure 134/84 02/22/2024 1:23 PM DRUM OPERATOR Pulse 97 02/22/2024 1:23 PM DRUM OPERATOR Temperature 36.7 C (98.1 F) 02/22/2024 1:23 PM DRUM OPERATOR Respiratory Rate - - Oxygen Saturation 98% 02/22/2024 1:23 PM DRUM OPERATOR Inhaled Oxygen Concentration - - Weight 76.7 kg (169 lb) 02/22/2024 1:23 PM DRUM OPERATOR Height - - Body Mass Index [...] No follow-ups on file. Samia Juárez MD [facility] Subjective Nursing Notes: Rebecca Chester, [facility] 02/22/2024 1:26 PM Signed Chief Complaint Patient presents with Recheck Medication Non-fasting today, refill medications Pre-visit Screening: Immunizations: up to date Colonoscopy: NA Mammogram: NA Asthma Action Test/Plan: NA PHQ9: Done today GAD7: Done today Questioned patient about current smoking habits Pt. has never smoked. Ok to leave detailed message on voice mail for today's visit only yes, phone # [phone] Cezar Gallardo is a 38 year old [...] edema PSYCH: mentation appears normal, affect normal/bright OPERATOR documented in this encounter Nursing Notes [...] for today's visit only yes, phone # [phone] OPERATOR documented in this encounter Plan of Treatment Not on file documented as of this encounter Visit Diagnoses Diagnosis ADRIANE (generalized anxiety disorder) Generalized anxiety disorder documented in this encounter Additional Health Concerns Assessment Noted Time PHQ-9 Depression Total Score: 2 02/21/19 25 1:54 PM DRUM OPERATOR documented as of this encounter Care Teams Roof Bolter Relationship Specialty Start Date End Date Yaniv Rhodes PA-C [address] [place] [address] PCP - General Family Medicine 06/26/21 Samia Juárez MD [address] [place] [address] Assigned PCP 09/08/23 documented as of this encounter
--- OUTSIDE RECORDS SUMMARY | 2024-03-08 22:46 | XMS_ITS | Clinical Summary ---
Author Organization [facility] Address [address] [facility] , [address] [place] [address] Phone Care Team Providers Care Cigarette Package Examiner Name Role Phone Print, Print Unavailable Conditions or Problems Problem Name Problem Code Onset Date Status Entry Date Provider Comment Standard Description Annotate Tremor, essential [id number] (SNOMED CT) 04/01 Active 04/01 John Ji MD Essential tremor Vestibular disorder [id number] (SNOMED CT) 04/01 Active 04/01 John Ji MD Labyrinthine disorder Cervical radiculopathy 51849213 (SNOMED CT) 04/01 Active 04/01 John Ji [...] Procedures Code Procedure Name Date Entry Date [id number] MRI-Brain W/O [id number] MRI-Cervical W/O ORDERS Courmelonie Mays Therapy 04/01 CPT-98632 MRI Cervical W/O CPT-60443 MRI Brain W/O Vital Signs No information available. Immunizations No information available. Advance Directives No information available.
[2024-03-08 23:17] VITALS: BP 111/61; PULSE 96; RESP 18; O2SAT 97
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
== END 2024-03-08 23:36 | disposition home or self-care (01) ==
PROVIDERS: Emergency Provider Family Medicine; PCP Family Medicine
DX: S06.0X1A Concussion with loss of consciousness of 30 minutes or less, initial encounter (principal); W01.0XXA Fall on same level from slipping, tripping and stumbling without subsequent striking against object, initial encounter; F10.129 Alcohol abuse with intoxication, unspecified
CPT/HCPCS: 70450; 72125; 99284; 99291; G0390